=== PATIENT | male | born 1955 | race Two or more races ===

== ENCOUNTER 2022-01-08 23:11 | Emergency (ER) | payer MEDICARE, OTHER ==
[~2022-01-08] VITALS: Ht 167.6 cm; Wt 74.8 kg
--- NOTE | 2022-01-08 23:40 | NUR ---
[id number] THIS 66YO MALE PATIENT FROM [facility]. WITH CC OF POSSIBLE SEIZURE WHICH LASTED 20SECS AND POST ICTAL IS <30 SECS. PATIENT IS AAOX2. CAME WITH LEFT CHEST CARDIAC DEFIB, WITH IFC F16 AND RIGHT KNEE WOUND. PATIENT IS MORE ALERT, RESPONDS TO QUESTIONS BUT CANNOT REMEMBER THE INCIDENT. SPEAKS [place]. PLACED ON SEIZURE PRECAUTION, ATTACHED TO MONITOR. VITALS CHECKED.
--- NOTE | 2022-01-09 00:15 | NUR ---
IV CANNULA G20 INSERTED ON LEFT AC. BLOOD DRAWN AND SENT TO LAB
[2022-01-09 00:31] LABS: BASOPHILS % (AUTO) 0.6 % (0.0-2.0); EOSINOPHILS % (AUTO) 3.7 % (0.0-6.0); HEMATOCRIT 37 % (39-51); HEMOGLOBIN 12.1 g/dL (13.5-17.5); LYMPHOCYTES # (AUTO) 1.9 K/uL (0.8-4.8); LYMPHOCYTES % (AUTO) 25.3 % (20.0-44.0); MEAN CORPUSCULAR HGB CONC 33 g/dl (31.0-36.0); MEAN CORPUSCULAR VOLUME 84 fL (80-96); MONOCYTES # (AUTO) 0.7 K/uL (0.1-1.30); NEUTROPHILS # (AUTO) 4.7 K/uL (1.8-8.9); NEUTROPHILS % (AUTO) 61.4 % (43.0-81.0); PLATELET COUNT (AUTO) 217 K/uL (150-450); RED BLOOD CELL COUNT(AUTO) 4.34 MIL/uL (4.5-6.0); WHITE BLOOD COUNT (AUTO) 7.7 K/uL (4.3-11.0)
--- NOTE | 2022-01-09 00:45 | NUR ---
CAME BACK FROM CT DEPT
[2022-01-09 00:51] LABS: CALCIUM, SERUM 9.3 mg/dL (8.5-10.1); CARBON DIOXIDE 27 mmol/L (21-32); CHLORIDE 102 mmol/L (98-107); CREATININE 1.1 mg/dL (0.6-1.3); GLUCOSE 112 mg/dL (74-106); POTASSIUM 3.8 mmol/L (3.5-5.1); SODIUM SERUM 138 mmol/L (136-145); UREA NITROGEN, BLOOD 22 mg/dL (7-18)
[2022-01-09 00:55] LABS: ALANINE AMINOTRANSFERASE 28 U/L (12-78); ALBUMIN 3.6 g/dL (3.4-5.0); ALCOHOL, BLOOD < 3 mg/dL (0-0); ALKALINE PHOSPHATASE 116 U/L (46-116); ASPARTATE AMINOTRANSFERASE 23 U/L (15-37); BILIRUBIN,DIRECT 0.1 mg/dL (0.0-0.2); BILIRUBIN,TOTAL 0.3 mg/dL (0.2-1.0); TOTAL PROTEIN, SERUM 8.5 g/dL (6.4-8.2)
--- NOTE | 2022-01-09 01:10 | NUR ---
URINE COLLECTED AND SENT TO LAB
[2022-01-09 01:38] LABS: BILIRUBIN,URINE NEGATIVE (NEGATIVE); COLOR,URINE YELLOW (YELLOW); LEUKOCYTE ESTERASE ,URINE MODERATE (NEGATIVE); NITRITE, URINE POSITIVE (NEGATIVE); PH,URINE 5.5 (5.0-8.0); PROTEIN,URINE 30 mg/dl (NEGATIVE); UGLUCOSE NEGATIVE (NEGATIVE); UROBILINOGEN,URINE 0.2 EU/dL (0.2)
[2022-01-09] MEDS ORDERED: CIPR-262 PO (01:51)
--- NOTE | 2022-01-09 01:52 | NUR ---
[facility] CALLED FOR BLS GOING BACK TO SNF PER [facility] ETA - 25 MIN
--- NOTE | 2022-01-09 02:29 | NUR ---
REPORT GIVEN TO FACILITY
[2022-01-09] MEDS: CIPROFLOXACIN HCL 500 MG TABLET PO ONE (02:31)
[2022-01-09] MEDS ORDERED: CIPROFLOXACIN HCL 500 MG TABLET ONE (02:31)
--- NOTE | 2022-01-09 02:45 | NUR ---
REPORT GIVEN TO EMS AT BEDSIDE
[2022-01-09 02:49] VITALS: BP 134/72
[2022-01-09 07:24] LABS: BACTERIA,URINE 3+ /HPF (None Seen); RBC,URINE 0-2 /HPF (0-2); WBC,URINE 21-50 /HPF (0-3)
== END 2022-01-09 02:50 ==
LOC: ER 23:24
DX: G40.909 Epilepsy, unspecified, not intractable, without status epilepticus (principal); N39.0 Urinary tract infection, site not specified; Z79.899 Other long term (current) drug therapy
CPT/HCPCS: 36415; 70450-TC; 71045-TC; 80048-TC; 80076-TC; 81001; 82962-TC; 85025-TC; 85730-TC; 87086-TC; 87186-TC; G0480